=== PATIENT | female | born 1970 | race Caucasian/White ===

== ENCOUNTER 2019-11-21 16:44 | Emergency (ER) | payer OTHER ==
[2019-11-21] MEDS ORDERED: XYLOCAINE 1% HCL 20 ML MDV IJ ONE (16:45)
--- NOTE | 2019-11-21 16:57 | ERPHSYRPT ---
- History of Present Illness Time Seen by Provider: 11/21/19 16:57 Source: patient, family Exam Limitations: no limitations Physician History: 49 y/o white female dx with strep pharyngitis 11/02/19 and began 10 days of cephalexin. sx only sl improved. pt then began augmentin today. pt has been having white spots on tonsils, headache, sore throat. no soa, no cp Timing/Duration: week(s) (3) Cough Quality/Degree: mild, dry cough Possible Cause: occasional episodes Associated Symptoms: fever, cough, headache, sore throat Allergies/Adverse Reactions: No Known Drug Allergies Allergy (Verified 11/21/19 17:04) Home Medications: Fluoxetine HCl 20 mg PO DAILY 11/21/19 [History] Nebivolol HCl [Bystolic] 10 mg PO DAILY 11/21/19 [History] SUMAtriptan succinate [Imitrex 50 mg] 1 tab PO UD PRN 11/21/19 [History] - Review of Systems Constitutional: Fever Eyes: No Symptoms Ears, Nose, & Throat: Throat Pain Respiratory: Cough Cardiac: No Symptoms Abdominal/Gastrointestinal: No Symptoms Genitourinary Symptoms: No Symptoms Musculoskeletal: No Symptoms Skin: No Symptoms Neurological: No Symptoms Psychological: No Symptoms Endocrine: No Symptoms Hematologic/Lymphatic: No Symptoms Immunological/Allergic: No Symptoms All Other Systems: Reviewed and Negative - Past Medical History Pertinent Past Medical History: Yes Neurological History: No Pertinent History ENT History: No Pertinent History Cardiac History: No Pertinent History Respiratory History: No Pertinent History Endocrine Medical History: No Pertinent History Musculoskeletal History: No Pertinent History GI Medical History: No Pertinent History History: No Pertinent History Psycho-Social History: No Pertinent History Female Reproductive Disorders: No Pertinent History - Past Surgical History Neuro Surgical History: No Pertinent History Cardiac: No Pertinent History Respiratory: No Pertinent History Gastrointestinal: No Pertinent History Genitourinary: No Pertinent History Musculoskeletal: No Pertinent History - Nursing Vital Signs Nursing Vital Signs: Initial Vital Signs Temperature 98.6 F 11/21/19 16:48 Pulse Rate 80 11/21/19 16:48 Blood Pressure 145/91 11/21/19 16:48 O2 Sat by Pulse Oximetry 93 L 11/21/19 16:48 Pain Scale Pain Intensity 9 - Physical Exam General Appearance: no apparent distress, alert, anxiety Eye Exam: PERRL/EOMI, eyes nml inspection Ears, Nose, Throat Exam: moist mucous membranes, pharyngeal erythema, tonsillar exudate Neck Exam: normal inspection, non-tender, supple, full range of motion Respiratory Exam: normal breath sounds, lungs clear, airway intact, No chest tenderness, No respiratory distress Cardiovascular Exam: regular rate/rhythm, normal heart sounds, normal peripheral pulses Gastrointestinal/Abdomen Exam: soft, normal bowel sounds, No tenderness Pelvic Exam: not done Rectal Exam: not done Back Exam: normal inspection, normal range of motion, No CVA tenderness, No vertebral tenderness Extremity Exam: normal inspection, normal range of motion, pelvis stable Neurologic Exam: alert, oriented x 3, cooperative, peoplesoft financials II-XII nml as tested Skin Exam: normal color, warm, dry Lymphatic Exam: No adenopathy O2 Delivery: Room Air - Course Nursing assessment & vital signs reviewed: Yes Ordered Tests: Medication Summary Discontinued Medications Generic Name Dose Route Start Last Admin Trade Name Freq PRN Reason Stop Dose Admin Hydrocodone Bitart/Acetaminophen 10 ml 11/21/19 17:26 Hydrocodone-Acetamin 2.5-108/5 Ml Solution PO 11/21/19 17:27 STAT STA Hydrocodone Bitart/Acetaminophen Confirm 11/21/19 17:34 Hydrocodone-Acetamin 2.5-108/5 Ml Solution Administered 11/21/19 17:35 Dose 10 ml .ROUTE .STK-MED ONE Ceftriaxone Sodium 1,000 mg 11/21/19 17:25 Rocephin 1000 Mg Inj IM 11/21/19 17:26 STAT ONE Ceftriaxone Sodium Confirm 11/21/19 17:34 Rocephin 1000 Mg Inj Administered 11/21/19 17:35 Dose 1,000 mg .ROUTE .STK-MED ONE Methylprednisolone Sodium Succinate 125 mg 11/21/19 17:26 Solu-Medrol 125 Mg IM 11/21/19 17:27 STAT ONE Methylprednisolone Sodium Succinate Confirm 11/21/19 17:34 Solu-Medrol 125 Mg Administered 11/21/19 17:35 Dose 125 mg .ROUTE .STK-MED ONE - Progress Progress: improved Air Movement: good Antibiotics given: Yes Counseled pt/family regarding: diagnosis, need for follow-up - Departure Departure Disposition: Home Clinical Impression: Pharyngitis, Tonsillitis Condition: Stable Critical Care Time: No Referrals: WALDO FOSTER MD [Primary Care Provider] - Additional Instructions: drink plenty of fluids. add ibuprofen for pain and fever. continue your augmentin as prescribed. follow up with primary doctor for further management Prescriptions: Hydrocodone Bit/Acetaminophen [Hydrocodone-Acetaminophen Soln] 10 ml PO Q6H # 120 ml Prednisone 10 mg [Deltasone 10 mg] 10 mg PO TID #12 tablet
[2019-11-21] MEDS ORDERED: Rocephin 1000 MG INJ IM ONE (17:25)
[2019-11-21] MEDS ORDERED: HYDROCODONE-ACETAMIN 2.5-108/5 ML SOLUTION PO STA (17:26)
[2019-11-21] MEDS ORDERED: solu-MEDROL 125 MG IM ONE (17:26)
[2019-11-21] MEDS ORDERED: Rocephin 1000 MG INJ ONE (17:34)
[2019-11-21] MEDS ORDERED: HYDROCODONE-ACETAMIN 2.5-108/5 ML SOLUTION ONE (17:34)
[2019-11-21] MEDS ORDERED: solu-MEDROL 125 MG ONE (17:34)
[2019-11-21 17:56] VITALS: BP 127/81; PULSE 82; O2SAT 94
== END 2019-11-21 18:09 | disposition home or self-care (01) ==
LOC: ED 16:44
DX: J02.9 Acute pharyngitis, unspecified (principal)
CPT/HCPCS: 96372; 99284; J0696; J2930; A9270-GY

== ENCOUNTER 2023-05-16 03:03 | Emergency (ER) | payer OTHER ==
--- NOTE | 2023-05-16 03:26 | ERPHSYRPT ---
- History of Present Illness Time Seen by Provider: 05/16/23 03:26 Source: patient Exam Limitations: no limitations Physician History: This is a 53-year-old overweight white female who has a history of hypertension and chronic back issues. Specifically she has right lower back pain that radiates in the back of her right leg. That is been present for a while. She sees a chiropractor for this condition. Patient denies loss of sensation in her feet. She has no tingling in her feet. She has no loss of urinary or bowel function. She did not suffer any type of fall or traumatic injury to her back. Quality: sharpness, stabbing Severity of Pain-Max: moderate Severity of Pain-Current: mild (To moderate) Lower Extremities Pain: hip: right (Radiated into the right upper leg posterior aspect) Modifying Factors: Improves With: movement Associated Symptoms: none Allergies/Adverse Reactions: No Known Drug Allergies Allergy (Verified 05/16/23 03:35) Home Medications: Fluoxetine HCl 20 mg PO DAILY 11/21/19 [History] Nebivolol HCl [Bystolic] 10 mg PO DAILY 11/21/19 [History] SUMAtriptan succinate [Imitrex 50 mg] 1 tab PO UD PRN 11/21/19 [History] Fremanezumab-Vfrm [Ajovy Autoinjector] 225 mg IM DIRECTIONS UNKNOWN 05/16/23 [History] Mecobalamin [B12 Active] 1,000 mcg PO DAILY 05/16/23 [History] Semaglutide [Ozempic] 0.5 mg SQ WEEKLY 05/16/23 [History] Travel Risk - International Travel Have you traveled outside of the country in past 3 weeks: No - Coronavirus Screening Are you exhibiting any of the following symptoms?: No Close contact with a COVID-19 positive Pt in past 14-21 Days: No - Review of Systems Constitutional: No Symptoms Eyes: No Symptoms Ears, Nose, & Throat: No Symptoms Respiratory: No Symptoms Cardiac: No Symptoms Abdominal/Gastrointestinal: No Symptoms Genitourinary Symptoms: No Symptoms Musculoskeletal: Back Pain Skin: No Symptoms Neurological: No Symptoms Psychological: No Symptoms Endocrine: No Symptoms Hematologic/Lymphatic: No Symptoms Immunological/Allergic: No Symptoms All Other Systems: Reviewed and Negative - Past Medical History Pertinent Past Medical History: Yes Neurological History: No Pertinent History ENT History: No Pertinent History Cardiac History: No Pertinent History Respiratory History: No Pertinent History Endocrine Medical History: No Pertinent History Musculoskeletal History: No Pertinent History GI Medical History: No Pertinent History History: No Pertinent History Psycho-Social History: No Pertinent History Female Reproductive Disorders: No Pertinent History - Past Surgical History Past Surgical History: Yes Neuro Surgical History: No Pertinent History Cardiac: No Pertinent History Respiratory: No Pertinent History Gastrointestinal: No Pertinent History Genitourinary: No Pertinent History Musculoskeletal: No Pertinent History Female Surgical History: Dilation & Curettage - Social History Smoking Status: Former smoker Exposure to second hand smoke: Yes Drug Use: none Patient Lives Alone: No - Nursing Vital Signs Nursing Vital Signs: Initial Vital Signs Temperature 97.6 F 05/16/23 03:04 Pulse Rate 80 05/16/23 03:04 Respiratory Rate 16 05/16/23 03:04 Blood Pressure 154/112 05/16/23 03:04 O2 Sat by Pulse Oximetry 97 05/16/23 03:04 Pain Scale Pain Intensity 10 - Physical Exam General Appearance: no apparent distress, alert, anxiety Eyes, Ears, Nose, Throat Exam: normal ENT inspection, moist mucous membranes Neck Exam: normal inspection, non-tender, supple, full range of motion Cardiovascular/Respiratory Exam: chest non-tender, no respiratory distress Gastrointestinal/Abdominal Exam: non-tender Back Exam: normal inspection, normal range of motion, muscle spasm (Right side), No CVA tenderness, No vertebral tenderness Hips Exam: right: soft tissue tenderness (Right hip, buttock and posterior right upper leg), left: non-tender, bilateral: normal inspection, normal range of motion, no evidence of injury Legs Exam: bilateral leg: non-tender, normal inspection, normal range of motion, no evidence of injury Knees Exam: bilateral knee: non-tender, normal inspection, normal range of motion, no evidence of injury Ankle Exam: bilateral ankle: non-tender, normal inspection, normal range of motion, no evidence of injury Foot Exam: bilateral foot: non-tender, normal inspection, normal range of motion, no evidence of injury Neuro/Tendon Exam: normal sensation, normal motor functions, normal tendon functions Mental Status Exam: alert, oriented x 3, cooperative Skin Exam: normal color, warm, dry SpO2 Interpretation: normal O2 Delivery: Room Air - Course Nursing assessment & vital signs reviewed: Yes Ordered Tests: Medication Summary Discontinued Medications Generic Name Dose Route Start Last Admin Trade Name Freq PRN Reason Stop Dose Admin Methylprednisolone Sodium 0 mg 05/16/23 04:01 Succinate 125 mg/ Sterile IM 05/16/23 04:02 Water 2 ml STAT ONE Hydromorphone HCl 1 mg 05/16/23 04:00 Hydromorphone 1 Mg/1ml Inj IM 05/16/23 04:01 STAT ONE Ondansetron HCl 4 mg 05/16/23 04:02 Zofran 4 Mg/Udtablet Orally Disintegrating PO 05/16/23 04:03 STAT ONE Orphenadrine Citrate 100 mg 05/16/23 04:02 Orphenadrine Citrate 100 Mg Er Tab PO 05/16/23 04:03 STAT ONE - Progress Progress: improved, pain not gone completely Progress Note: 05/16/23 04:09 This patient's medical issue is 1 of low complexity. Level complexity work-up performed is based on review of the patient's past medical history, review of the patient's medication list, review of the patient's drug allergy list, history present illness and physical findings on examination. This patient does not require any laboratory or radiographic studies. She did not suffer any fall or acute traumatic injury to the area. Patient states that she is going out of town to [place] within the next 24 hours. I did warn her about not consuming alcoholic beverage while on the medication I am prescribing to her as an outpatient. She states that she is aware. Counseled pt/family regarding: diagnosis, need for follow-up Medical Desision Making - Diagnostic Testing Diagnostic test were ordered, analyzed, and reviewed by me: No - Risk of complications The pt has a mod risk of morbidity or mortality based on: Need for prescription drug management - Departure Departure Disposition: Home Clinical Impression: Sciatica Condition: Stable Critical Care Time: No Referrals: WALDO FOSTER MD [Primary Care Provider] - Follow up/PCP as directed Additional Instructions: Take your medication as prescribed. Do not consume alcoholic beverages with the medication you have been prescribed. Follow-up with your primary care provider for further evaluation management. Prescriptions: Prednisone 10 mg [Deltasone 10 mg] 10 mg PO TID #12 tablet Orphenadrine Citrate 100 mg [Norflex 100 MG Tablet] 100 mg PO BID #10 tab
[2023-05-16] MEDS ORDERED: Hydromorphone 1 mg/ml Injection IM ONE (04:00)
[2023-05-16] MEDS ORDERED: solu-MEDROL 125 MG, Sterile H2O 10 ml 2 ML IM ONE ×2 (04:01)
[2023-05-16] MEDS ORDERED: Norflex 100 MG Tablet PO ONE ×4 (04:02→04:26)
[2023-05-16] MEDS ORDERED: ZOFRAN ODT 4 MG PO ONE (04:02)
[2023-05-16] MEDS ORDERED: Sterile H2O 10 ml IJ ONE (04:05)
[2023-05-16] MEDS ORDERED: Hydromorphone 1 mg/ml Injection ONE (04:06)
[2023-05-16] MEDS ORDERED: solu-MEDROL ONE (04:06)
[2023-05-16] MEDS ORDERED: ZOFRAN ODT 4 MG ONE (04:06)
[2023-05-16 04:10] VITALS: BP 118/67
[2023-05-16] MEDS ORDERED: DELTASONE 20 MG PO ONE (04:22)
[2023-05-16] MEDS ORDERED: DELTASONE 20 MG ONE (04:26)
[2023-05-16 04:45] VITALS: PULSE 62; O2SAT 94
== END 2023-05-16 04:45 | disposition home or self-care (01) ==
LOC: ED 03:03
DX: M54.31 Sciatica, right side (principal); I10 Essential (primary) hypertension; Z79.85 Long-term (current) use of injectable non-insulin antidiabetic drugs; Z79.899 Other long term (current) drug therapy
CPT/HCPCS: 96372; 99283; J1170; J2930; Q0162; A9270-GY